=== PATIENT | female | born 1940 | race Caucasian/White ===

== ENCOUNTER 2018-03-13 18:34 | Emergency (ER) | payer OTHER ==
[2018-03-13 18:34] VITALS: BMI 27.3
[2018-03-13 18:38] VITALS: TEMP 98.2
[2018-03-13] MEDS ORDERED: LIDOCAINE HCL 1% SDV SUBCUT STA (19:26)
--- NOTE | 2018-03-13 20:01 | ED.PDOC ---
General ED Provider: Dr. REINIER YBARRA Chief Complaint: Toe Laceration Stated Complaint: She tripped on the rug, has cut to left 1 st toe. had Tdap 4- 5 years ago Time Seen by Physician: 19:58 Mode of Arrival: Wheelchair Information Source: Patient Primary Care Provider: FATUMA BURNETTE Nursing and Triage Documentation Reviewed and Agree: Yes Does patient meet sepsis criteria?: No If yes, has appropriate treatment been initiated?: No System Inflammatory Response Syndrome: Not Applicable Sepsis Protocol: For patient's 13 years and over: Temp is 96.8 and below OR 101 and greater Pulse >90 BPM Resp >20/minute Acutely Altered Mental Status Are patient's symptoms suggestive of a new infection, such as: -Pneumonia -Skin, Soft Tissue -Endocarditis -UTI -Bone, Joint Infection -Implantable Device -Acute Abdominal Infection -Wound Infection -Meningitis -Blood Stream Catheter Infection -Unknown Skin Complaint Exam - Laceration/Lower Ext. Complaint/Exam Location of Injury: Left, Toe #1 Mechanism of Injury: Laceration Symptoms Are: Still present Current Severity: Mild Aggravating: Movement Alleviating: None Associated Signs and Symptoms: Denies: Fever, Chills, Erythema, Numbness, Tingling Differential Diagnoses: Laceration Review of Systems - Review Of Systems Constitutional: Reports: No symptoms Eyes: Reports: No symptoms Ears, Nose, Mouth, Throat: Reports: No symptoms Respiratory: Reports: No symptoms Cardiac: Reports: No symptoms GI: Reports: No symptoms : Reports: No symptoms Musculoskeletal: Reports: No symptoms Skin: Reports: No symptoms Neurological: Reports: No symptoms Endocrine: Reports: No symptoms Hematologic/Lymphatic: Reports: No symptoms All Other Systems: Reviewed and Negative Past Medical History - Past Medical History Previously Healthy: Yes Endocrine: Reports: DM 2 Cardiovascular: Reports: CAD, Hypertension Respiratory: Reports: COPD Hematological: Reports: None Gastrointestinal: Reports: None Genitourinary: Reports: None Neuro/Psych: Reports: None Musculoskeletal: Reports: None Cancer: Reports: None Last Menstrual Period: n/a - Surgical History General Surgical History: Reports: CABG, Other (CABG DONE, NEUROPATHY, AND SCIATIC NERVE PROBLEMS.) - Family History Family History: Reports: None - Social History Smoking Status: Never smoker Hx Substance Use: No Alcohol Screening: None - Immunizations Tetanus Shot up to Date: Yes (2-3 years ago) Physical Exam - Physical Exam Appearance: Well-appearing, No pain distress, Well-nourished Eyes: LEONA, EOMI, Conjunctiva clear ENT: Ears normal, Nose normal, Oropharynx normal Respiratory: Airway patent, Breath sounds clear, Breath sounds equal, Respirations nonlabored Cardiovascular: RRR, Pulses normal, No rub, No murmur GI/: Soft, Nontender, No masses, Bowel sounds normal, No Organomegaly Musculoskeletal: Normal strength, ROM intact, No edema, No calf tenderness Skin: Warm, Dry, Normal color Neurological: Sensation intact, Motor intact, Reflexes intact, Cranial nerves intact, Alert, Oriented Psychiatric: Affect appropriate, Mood appropriate Procedures - Laceration/Wound Repair No standard instances Wound Description: Linear Wound Length (cm): 3-4 cm Wound Explored: Clean Wound Prep: Saline Anesthesia: Lidocaine Wound Repaired With: Sutures Number of Sutures: 4 Critical Care Note - Critical Care Note Total Time (mins): 30 Course - Course Orders, Labs, Meds: Orders Category Date Time Status Lidocaine HCl/Pf [Lidocaine HCl 1% Sdv] MEDS 03/13/18 19:26 Discontinued 5 ml SUBCUT ONCE STA FOOT, RIGHT 3 VIEWS Stat RADS 03/13/18 19:26 Taken Medications Discontinued Medications Generic Name Dose Route Start Last Admin Trade Name Freq PRN Reason Stop Dose Admin Lidocaine HCl 5 ml 03/13/18 19:26 Lidocaine Hcl 1% Sdv SUBCUT 03/13/18 19:27 ONCE STA Vital Signs: Temp Pulse Resp BP Pulse Ox 03/13/18 18:35 98.2 F 84 16 184/91 H 96 Departure - Departure Time of Disposition: 20:02 Disposition: HOME SELF-CARE Discharge Problem: Toe laceration Qualifiers: Encounter type: initial encounter Toe: great toe Damage to nail status: without damage Foreign body presence: without foreign body Laterality: right Qualified Code(s): S91.111A - Laceration without foreign body of right great toe without damage to nail, initial encounter Instructions: Laceration (ED) Condition: Stable Pt referred to PMD for follow-up: Yes IPMP verified?: No Additional Instructions: Tylenol prn If any redness or more pain needs f/u early otherwise f/u in 7 days for suture removal. Allergies/Adverse Reactions: Allergies No Known Allergies Allergy (Verified 08/10/16 11:18) Home Medications: Ambulatory Orders Atenolol [Tenormin] 50 mg PO BID 08/10/16 Benazepril HCl [Lotensin] 40 mg PO BID 08/10/16 Cholecalciferol (Vitamin D3) [Vitamin D] 1,000 unit PO BID 08/10/16 Felodipine [Felodipine ER] 10 mg PO DAILY 08/10/16 Fenofibrate Nanocrystallized [Fenofibrate] 145 mg PO DAILY 08/10/16 Furosemide [Lasix Tab] 40 mg PO QDAC 08/10/16 Hydrocodone Bit/Acetaminophen [[place] 7.5-325] 1 tab PO BID 08/10/16 Hydrocodone/Acetaminophen [[place] 5-325 Tablet] 1 tab PO Q6HR PRN #12 tablet 11/21 Levothyroxine Sodium [Synthroid] 150 mcg PO DAILY 08/10/16 Lorazepam [Ativan] 1 mg PO BEDTIME 08/10/16 Metformin HCl [Metformin HCl ER] 500 mg PO DAILY 08/10/16 Potassium Chloride 10 meq PO BID 08/10/16 Ranitidine HCl [Zantac] 150 mg PO BIDAC 08/10/16 Simvastatin [Zocor] 40 mg PO DAILY 08/10/16 Ferrous Sulfate 325 mg PO BID 03/13/18 Vitamin E 400 unit PO BID 03/13/18 Disposition Discussed With: Patient
[2018-03-13 20:13] VITALS: BP 188/101
--- NOTE | 2018-03-13 21:26 | DI ---
Exam: Three views of the right foot. Comparison: None available. Reason for exam: Injury with pain. FINDINGS: No acute fracture or malalignment. The joint spaces appear relatively well maintained. T here well mention osseous densities adjacent to the proximal fifth metatarsal. Nonspecific soft tiss ue findings are seen in the great toe. Impression: 1. No acute fracture or dislocation is seen in the right foot. 2. Degenerative disease in the midfoot and phalanges. 3. Well marginated osseous densities adjacent to the proximal fifth metatarsal likely previous injur y. 4. Nonspecific soft tissue findings in the region of the first phalanx.
== END 2018-03-13 20:20 | disposition home or self-care (01) ==
LOC: ED 18:34
DX: S91.111A Laceration without foreign body of right great toe without damage to nail, initial encounter (principal); W22.8XXA Striking against or struck by other objects, initial encounter
CPT/HCPCS: 99283

== ENCOUNTER 2018-10-06 11:45 | Emergency (ER) | payer OTHER ==
[2018-10-06 11:51] VITALS: BP 154/77; TEMP 100.3; BMI 28.7
--- NOTE | 2018-10-06 11:57 | ED.PDOC ---
General ED Provider: Dr. LENA CROOKS Chief Complaint: Sore Throat Stated Complaint: Cough and congestion, chest wheezing. States onset sore throat on friday nite, then developed head coongestion, mucous production. Has had cough and fever--states ears are stopped up, especially lt side with difficulty hearing. Time Seen by Physician: 12:05 Mode of Arrival: Walk-In Information Source: Patient Exam Limitations: No limitations Primary Care Provider: FATUMA BURNETTE Nursing and Triage Documentation Reviewed and Agree: Yes Does patient meet sepsis criteria?: No System Inflammatory Response Syndrome: Not Applicable Sepsis Protocol: For patient's 13 years and over: Temp is 96.8 and below OR 101 and greater Pulse >90 BPM Resp >20/minute Acutely Altered Mental Status Are patient's symptoms suggestive of a new infection, such as: -Pneumonia -Skin, Soft Tissue -Endocarditis -UTI -Bone, Joint Infection -Implantable Device -Acute Abdominal Infection -Wound Infection -Meningitis -Blood Stream Catheter Infection -Unknown Respiratory Complaint Exam - Respiratory Complaint/Exam Symptoms Are: Still present Timing: Intermittent Initial Severity: Moderate Current Severity: Mild Location: Nose, Throat, Chest Character: Reports: Productive cough Aggravating: Reports: None, Recumbent position Alleviating: Reports: Upright position Associated Signs and Symptoms: Reports: Vomiting, Sore throat. Denies: Rapid breathing, Dyspnea, Fever, Chills, Chest pain, Pleuritic chest pain, Wheezing, Hemoptysis, Dizziness, Calf pain, Calf swelling, Edema, URI, Hoarseness, Sinus discomfort, Weight loss, Decreased oral intake, Increased thirst, Increased appetite, Increased urination Related History: Denies: Similar episode History of Healthcare-Acquired Pneumonia: No Related Surgical History: Reports: None Pulmonary Embolism Risk Factors: None Cardiac Risk Factors: Reports: None Pseudomonas Risk Factors: Reports: None Tuberculosis Risk Factors: Reports: None Status Asthmaticus Risk Factors: Reports: None Home Oxygen Use: No Recent Stress Test: No Recent Echo/LV Function: No Current Antibiotic Use: No Current Asthma Medication Use: No Respiratory Distress: None Inadequate Respiratory Effort: No Dysphagia Present: No Stridor Present: No JVD Present: No Accessory Muscle Use: No Retractions: Not Present Diminished Breath Sounds: No Sinus Tenderness: Maxillary Grunting Respirations: No Kussmaul Respirations: No Differential Diagnoses: Bronchitis, Sinusitis, URI, Influenza Review of Systems - Review Of Systems Constitutional: Reports: No symptoms, Weakness Eyes: Reports: No symptoms Ears, Nose, Mouth, Throat: Reports: No symptoms Respiratory: Reports: Cough, Wheezing Cardiac: Reports: No symptoms GI: Reports: No symptoms : Reports: No symptoms Musculoskeletal: Reports: No symptoms Skin: Reports: No symptoms Neurological: Reports: No symptoms Endocrine: Reports: No symptoms Hematologic/Lymphatic: Reports: No symptoms All Other Systems: Reviewed and Negative Past Medical History - Past Medical History Previously Healthy: Yes Endocrine: Reports: DM 2 Cardiovascular: Reports: CAD, Hypertension Respiratory: Reports: COPD Hematological: Reports: None Gastrointestinal: Reports: None Genitourinary: Reports: None Neuro/Psych: Reports: None Musculoskeletal: Reports: None Cancer: Reports: None Last Menstrual Period: menopause - Surgical History General Surgical History: Reports: CABG, Other (CABG DONE, NEUROPATHY, AND SCIATIC NERVE PROBLEMS.) - Family History Family History: Reports: None - Social History Smoking Status: Never smoker Hx Substance Use: No Alcohol Screening: None Physical Exam - Physical Exam Appearance: Ill-appearing, Well-nourished Ill-appearing: Mild Pain Distress: None Eyes: LEONA, EOMI, Conjunctiva clear ENT: Ears normal, Nose normal, Erythema Respiratory: Airway patent, Breath sounds clear, Breath sounds equal, Respirations nonlabored, Wheezes Cardiovascular: RRR, Pulses normal, No rub, No murmur GI/: Soft, Nontender, No masses, Bowel sounds normal, No Organomegaly Musculoskeletal: Normal strength, ROM intact, No edema, No calf tenderness Skin: Warm, Dry, Normal color Neurological: Sensation intact, Motor intact, Reflexes intact, Cranial nerves intact, Alert, Oriented Psychiatric: Affect appropriate, Mood appropriate Critical Care Note - Critical Care Note Total Time (mins): 60 Course - Course Hematology/Chemistry: 10/06/18 12:05 10/06/18 12:05 Orders, Labs, Meds: Lab Review 10/06/18 10/06/18 10/06/18 12:00 12:00 12:05 WBC 9.46 RBC 4.03 L Hgb 12.1 Hct 37.1 MCV 92.1 MCH 30.0 MCHC 32.6 RDW Coeff of Valerie 13.1 Plt Count 220 Immature Gran % (Auto) 0.4 Neut % (Auto) 85.6 Lymph % (Auto) 8.6 L [place] % (Auto) 4.7 Eos % (Auto) 0.3 Baso % (Auto) 0.4 Immature Gran # (Auto) 0.0 Neut # (Auto) 8.1 H Lymph # (Auto) 0.8 [place] # (Auto) 0.4 Eos # (Auto) 0.0 Baso # (Auto) 0.0 Sodium Potassium Chloride Carbon Dioxide Anion Gap BUN Creatinine Estimated GFR (MDRD) BUN/Creatinine Ratio Glucose Calcium Total Bilirubin AST ALT Alkaline Phosphatase Total Protein Albumin Globulin Albumin/Globulin Ratio Urine Color Urine Clarity Urine pH Ur Specific [place] Urine Protein Urine Glucose (UA) Urine Ketones Urine Blood Urine Nitrite Urine Bilirubin Urine Urobilinogen Ur Leukocyte Esterase Urine Microscopic RBC Urine Microscopic WBC Ur Squamous Epith Cells Influ A Molecular Assay Negative by naat Influ B Molecular Assay Negative by naat RSV Antigen Negative by naat 10/06/18 10/06/18 12:05 12:10 WBC RBC Hgb Hct MCV MCH MCHC RDW Coeff of Valerie Plt Count Immature Gran % (Auto) Neut % (Auto) Lymph % (Auto) [place] % (Auto) Eos % (Auto) Baso % (Auto) Immature Gran # (Auto) Neut # (Auto) Lymph # (Auto) [place] # (Auto) Eos # (Auto) Baso # (Auto) Sodium 137.2 Potassium 3.90 Chloride 98.1 Carbon Dioxide 27.5 Anion Gap 15.50 BUN 20.7 H Creatinine 1.15 Estimated GFR (MDRD) 45.00 BUN/Creatinine Ratio 18.00 Glucose 228.5 H Calcium 10.05 Total Bilirubin 0.57 AST 39.1 H ALT 27.7 Alkaline Phosphatase 41.9 L Total Protein 7.41 Albumin 4.31 Globulin 3.10 Albumin/Globulin Ratio 1.39 Urine Color Yellow Urine Clarity Clear Urine pH 6.0 Ur Specific [place] <=1.005 Urine Protein Negative Urine Glucose (UA) Negative Urine Ketones Negative Urine Blood Trace-intact Urine Nitrite Negative Urine Bilirubin Negative Urine Urobilinogen 0.2 Ur Leukocyte Esterase 1+ Urine Microscopic RBC 0-2 Urine Microscopic WBC 0-2 Ur Squamous Epith Cells Not present Influ A Molecular Assay Influ B Molecular Assay RSV Antigen Orders Category Date Time Status NEBULIZER TREATMENT Stat CARDIO 10/06/18 12:08 Completed CBC W/ AUTO DIFF Stat LAB 10/06/18 12:05 Completed CMP [COMPREHENSIVE METABOLIC PANEL] Stat LAB 10/06/18 12:05 Completed FLU A & B MOLECULAR [FLU A/B MOLECULAR] Stat LAB 10/06/18 12:00 Completed RAPID STREP SCREEN [MOLECULAR GROUP A STREP] Stat LAB 10/06/18 12:00 Completed RSV Stat LAB 10/06/18 12:00 Completed SPUTUM CULTURE Stat LAB 10/06/18 12:20 Completed UA [URINALYSIS C & S IF INDICATED] Stat LAB 10/06/18 12:10 Completed Albuterol Sulfate 0.042% Neb [Albuterol 0.042% Neb] MEDS 10/06/18 12:07 Discontinued 1 vial NEB ONCE STA CHEST, 2 VIEWS PA & LAT Stat RADS 10/06/18 11:56 Completed SINUS, PARANASAL MIN 3V Stat RADS 10/06/18 12:08 Completed Medications Discontinued Medications Generic Name Dose Route Start Last Admin Trade Name Freq PRN Reason Stop Dose Admin Albuterol Sulfate 1 vial 10/06/18 12:07 10/06/18 12:23 Albuterol 0.042% Neb NEB 10/06/18 12:08 1 vial ONCE STA Administration Vital Signs: Temp Pulse Resp BP Pulse Ox 10/06/18 11:47 100.3 F H 94 H 20 154/77 H 94 L Departure - Departure Time of Disposition: 13:20 Disposition: HOME SELF-CARE Discharge Problem: Bronchitis Instructions: Acute Bronchitis (ED) Condition: Fair Pt referred to PMD for follow-up: Yes (1wk) IPMP verified?: No Prescriptions: Albuterol Sulfate [Ventolin Hfa] 2 puff IH QID #1 hfa.aer.ad Amoxicillin/Potassium Clav [Augmentin 875-125 Tablet] 1 each PO BID #20 tablet Allergies/Adverse Reactions: Allergies No Known Allergies Allergy (Verified 10/06/18 11:52) Home Medications: Ambulatory Orders Atenolol [Tenormin] 50 mg PO BID 08/10/16 Benazepril HCl [Lotensin] 40 mg PO BID 08/10/16 Cholecalciferol (Vitamin D3) [Vitamin D] 1,000 unit PO BID 08/10/16 Felodipine [Felodipine ER] 10 mg PO DAILY 08/10/16 Fenofibrate Nanocrystallized [Fenofibrate] 145 mg PO DAILY 08/10/16 Furosemide [Lasix Tab] 40 mg PO QDAC 08/10/16 Hydrocodone Bit/Acetaminophen [[place] 7.5-325] 1 tab PO BID 08/10/16 Hydrocodone/Acetaminophen [[place] 5-325 Tablet] 1 tab PO Q6HR PRN #12 tablet 11/21 Levothyroxine Sodium [Synthroid] 150 mcg PO DAILY 08/10/16 Lorazepam [Ativan] 1 mg PO BEDTIME 08/10/16 Metformin HCl [Metformin HCl ER] 500 mg PO DAILY 08/10/16 Potassium Chloride 10 meq PO BID 08/10/16 Ranitidine HCl [Zantac] 150 mg PO BIDAC 08/10/16 Simvastatin [Zocor] 40 mg PO DAILY 08/10/16 Ferrous Sulfate 325 mg PO BID 03/13/18 Vitamin E 400 unit PO BID 03/13/18 Albuterol Sulfate [Ventolin Hfa] 2 puff IH QID #1 hfa.aer.ad 10/06/18 Amoxicillin/Potassium Clav [Augmentin 875-125 Tablet] 1 each PO BID #20 tablet 10/06/18 Disposition Discussed With: Patient, Family
[2018-10-06] MEDS ORDERED: ALBUTEROL 0.042% NEB NEB STA (12:07)
--- NOTE | 2018-10-06 13:01 | DI ---
EXAM: Chest two views HISTORY: Congestive COMPARISON: 09/20/2014 TECHNIQUE: Two views of the chest were performed FINDINGS: No airspace consolidation. There is no pleural effusion or pneumothorax. The heart is no rmal in size. The mediastinal contour is normal, noting atherosclerosis. Median sternotomy wires. There are no acute abnormalities of the bones. IMPRESSION: No acute cardiopulmonary process.
--- NOTE | 2018-10-06 13:02 | DI ---
EXAM: Paranasal sinuses. Three-view HISTORY: And congestion, fall none COMPARISON: None FINDINGS/IMPRESSION: Mucosal thickening of the maxillary sinuses suggestive of an area of polypoid t hickening on the right may be due to mucous retention cyst. No definite air-fluid levels identified.
== END 2018-10-06 13:35 | disposition home or self-care (01) ==
LOC: ED 11:45
DX: J40 Bronchitis, not specified as acute or chronic (principal); E11.9 Type 2 diabetes mellitus without complications; I10 Essential (primary) hypertension; I25.810 Atherosclerosis of coronary artery bypass graft(s) without angina pectoris; J44.9 Chronic obstructive pulmonary disease, unspecified; Z79.899 Other long term (current) drug therapy
CPT/HCPCS: 36415; 80053; 81001; 85025; 87070; 87502; 87651; 87801; 94640; 99283

== ENCOUNTER 2019-05-13 11:40 | Outpatient (CLI) | payer OTHER ==
--- NOTE | 2019-05-13 13:16 | CT ---
EXAM: CT of the lumbar spine without contrast History: Lower back pain. Technique: Multiplanar CT images through the lumbar spine were obtained without the administration o f IV contrast Findings: Atherosclerotic vascular calcifications. 3.8 cm mildly complicated cyst within the left k idney demonstrating rim calcification and thin calcified internal septation. 5 mm benign hemorrhagic or proteinaceous cyst within the right kidney. No acute fracture or subluxation of the lumbar spine. Severe disc space narrowing at L5-S1 with endp late sclerosis, osteophyte formation and vacuum disc phenomenon. Mild to moderate disc space narrowi ng seen elsewhere. T12-L1: No significant bony central canal stenosis or bony neural foraminal narrowing. L1-L2: No significant bony central canal stenosis or bony neural foraminal narrowing. L2-L3: Left paracentral disc protrusion effacing anterior thecal sac with no significant bony centra l canal stenosis. Mild left bony neural foraminal narrowing secondary to ligamentous and facet hyper trophy and disc material. L3-L4: Small disc bulge effacing anterior thecal sac with no significant central canal stenosis. Mi ld bilateral bony neural foraminal narrowing secondary to ligamentous and facet hypertrophy. L4-L5: Right paracentral disc protrusion effacing anterior thecal sac with moderate central canal st enosis. There is triangulation of the thecal sac secondary to ligamentous hypertrophy. Mild to mode rate right and mild left bony neural foraminal narrowing secondary to ligamentous and facet hypertrop hy and disc material on the right. L5-S1: Mild bony central canal stenosis. Severe left and moderate to severe right bony neural ray inal narrowing secondary to ligamentous and facet hypertrophy. Impression: 1. No acute osseous abnormality of the lumbar spine. 2. Severe degenerative disc disease at L5-S1. 3. Level by level analysis as detailed above with moderate central canal stenosis at L4-L5. 4. Mildly complicated benign cyst within the left kidney. 5. Atherosclerotic vascular disease
== END 2019-05-13 11:41 | disposition home or self-care (01) ==
LOC: RAD 11:40
PROVIDERS: ATTEND Internal Medicine
DX: M54.5 Low back pain (principal)